=== PATIENT | male | born 1995 | race Caucasian/White ===

== ENCOUNTER 2018-02-02 22:18 | Emergency (ER) | END 2018-02-03 00:28 | disposition home or self-care (01) ==

== ENCOUNTER 2018-02-24 16:15 | Emergency (ER) | END 2018-02-24 17:58 | disposition home or self-care (01) ==

== ENCOUNTER 2019-02-19 17:33 | Emergency (ER) | payer MEDICAID, OTHER ==
[~2019-02-19] VITALS: Wt 95.5 kg
[~2019-02-19 17:33] MED LIST: ALBU8.5H8 INH; AZIT250T PO; BENZ-6 PO; FAMO-96 PO
--- NOTE | 2019-02-19 20:59 | ERD ---
ER Documentation Chief Complaint Chief Complaint right wrist possible foreing body HPI 23-year-old male with no significant past medical history presenting to the emergency department complaining of foreign body to the right wrist for the past 3 days. The patient states he fell while playing a soccer game which caused a piece of wooden foreign body to lodge in his right wrist. He reports mild pain which is worse with movement. He tried no medication for relief of symptoms. He denies any other symptoms or injuries at this time. He denies any head injury or loss of consciousness. ROS All systems reviewed and are negative except as per history of present illness. Medications Home Meds Active Scripts Ibuprofen* (Motrin*) 600 Mg Tab, 600 MG PO Q6, #30 TAB Prov:SANJANA WARE PA-C 02/19/19 Doxycycline Hyclate* (Doxycycline Hyclate*) 100 Mg Tablet.dr, 100 MG PO BID for 10 Days, TAB Prov:SANJANA WARE PA-C 02/19/19 Albuterol Sulfate* (Proair HFA*) 8.5 Gm Hfa.aer.ad, 2 PUFF INH Q4, #1 INHALER Prov:SHREYA OLIVARES PA-C 02/02/18 Azithromycin* (Zithromax*) 250 Mg Tablet, 250 MG PO .ZPACK DIRECTED, #6 TAB TAKE 500 MG (2 TABS) THE FIRST DAY THEN 250 MG (1 TAB) DAYS 2-5 Prov:SHREYA OLIVARES PA-C 02/02/18 Benzonatate* (Tessalon Perle*) 100 Mg Capsule, 100 MG PO Q8H PRN for COUGH, #20 CAP Prov:SHREYA OLIVARES PA-C 02/02/18 Famotidine* (Pepcid*) 20 Mg Tablet, 20 MG PO BID for 30 Days, TAB Prov:SHREYA OLIVARES PA-C 02/02/18 Allergies Allergies: Coded Allergies: No Known Allergy (Unverified , 02/19/19) PMhx/Soc Medical and Surgical Hx: pt denies Medical Hx, pt denies Surgical Hx History of Surgery: No Anesthesia Reaction: No Hx Neurological Disorder: Yes (Migraines) Hx Respiratory Disorders: No Hx Cardiac Disorders: No Hx Psychiatric Problems: No Hx Miscellaneous Medical Probl: No Hx Alcohol Use: No Hx Substance Use: No Hx Tobacco Use: No Smoking Status: Never smoker FmHx Family History: No diabetes Physical Exam Vitals Vital Signs Date Temp Pulse Resp B/P (MAP) Pulse Ox O2 O2 Flow FiO2 Time Delivery Rate 02/19/19 98.2 88 17 135/80 100 Room Air 22:02 (98) 02/19/19 97.9 84 18 146/71 99 17:39 (96) Physical Exam Const: No acute distress Head: Atraumatic Eyes: Normal Conjunctiva ENT: Normal External Ears, Nose and Mouth. Neck: Full range of motion. No meningismus. Resp: No respiratory distress. Skin: No petechiae or rashes Ext: No cyanosis, or edema. Palpable superficial foreign body measuring approximately 2 cm noted to the medial aspect of the right wrist. There is no surrounding erythema or lymphatic streaking. Patient is neurovascularly intact to the right upper extremity. Neur: Awake and alert Psych: Normal Mood and Affect Results 24 hrs Current Medications Medications Dose Sig/Domi Start Time Status Last (Trade) Ordered Route PRN Stop Time Admin Dose Reason Admin Lidocaine 20 ml ONCE ONCE 02/19/19 DC (Xylocaine INJ 21:30 2% (Mdv) 20 02/19/19 21:31 ml) Procedures/MDM 23-year-old male presenting to the emergency department complaining of foreign body to the right wrist which she sustained 3 days ago after a fall. Patient was fully informed of the risks, benefits, alternatives of foreign body removal in the department and he gave verbal consent. X-ray was negative for any acute abnormalities and the full report interpreted by the radiologist may be viewed above. Foreign Body Removal Performed by: me Indication: retained foreign body Location: Right medial wrist Anesthesia: local infiltration with 1% Lidocaine Technique: Irrigated. Blunt dissection. Foreign bodies recovered: Attempts were unsuccessful Post-procedure assessment: foreign body unable to be removed. Patient will have to follow-up with general surgeon. No complications. Neurovascularly intact post procedure Patient tolerance: Patient tolerated the procedure well with no immediate complications 48 hour wound check. Scar minimization instructions given. No evidence of life-threatening pathology at time of discharge. Pt/family in ag reement with discharge plan/diagnosis. Pt/family advised to return immediately with any new or worsening symptoms. Follow-up with primary care physician within the next 1-2 days. Departure Diagnosis: Primary Impression: Retained foreign body Condition: Fair Additional Instructions: Muchas marianela por [facility] para gray servicio. Esperamos que en gray visita a la case de emergencia gray problema medico haya sido solucionado y que se sienta mucho mejor. Para estar seguros que gray mejoria sigue en proceso, le pedimos el favor de hacer arminda cale de seguimiento medico con gray doctor primario en los proximos 2-4 lee. Lleve con usted estos documentos y las medicinas recetadas. Si elissa sintomas empeoran, NO SE ESPERE, por favor regrese a case de emergencia INMEDIATAMENTE. En phill que usted no tenga un mdico de atencin primaria: Llame al mdico o clnica comunitaria de referencia que aparece abajo marjan las horas de consultorio para hacer arminda cale para que le vean. CLINICAS: [facility] [phone] [facility] [phone] [facility] [phone] [facility] [phone] [place] [id number] [phone] [facility] [phone] SANJANA COLÓN PA-C February 19, 2019 20:59
[2019-02-19] MEDS ORDERED: LIDOCAINE 2% (MDV) 20 ML INJ INJ ONE (21:30)
[2019-02-19] MEDS ORDERED: IBUP-1542 PO (21:39)
[2019-02-19] MEDS ORDERED: DOXY100T20 PO (21:39)
[2019-02-19 22:02] VITALS: BP 135/80; PULSE 88; RESP 17
== END 2019-02-19 22:02 | disposition home or self-care (01) ==
LOC: FTE 17:33
DX: S60.851A Superficial foreign body of right wrist, initial encounter (principal); W19.XXXA Unspecified fall, initial encounter; Y92.322 Soccer field as the place of occurrence of the external cause
CPT/HCPCS: 24200; 73110; Z7502; Z7610